=== PATIENT | male | born 2000 | race Caucasian/White ===

== ENCOUNTER 2021-12-15 11:26 | Emergency (ER) | payer OTHER ==
[~2021-12-15] VITALS: Ht 177.8 cm; Wt 148.7 kg
[2021-12-15] MEDS ORDERED: AMOX TR-K CLV1 EAC1 PO (11:59)
== END 2021-12-15 12:21 | disposition home or self-care (01) ==
LOC: ED 11:26
DX: S51.851A Open bite of right forearm, initial encounter (principal); Z23 Encounter for immunization; W54.0XXA Bitten by dog, initial encounter
CPT/HCPCS: 90471; 90715; 99283-25; A9270